=== PATIENT | female | born 1945 | race Caucasian/White ===

== ENCOUNTER → 2020-03-01 15:04 | Outpatient (CLI) | payer MEDICARE, OTHER, SELFPAY ==
[2020-03-01 16:24] LABS: Add Manual Diff / Slide Review NO; Basophils Absolute Auto 100 /uL (0-100); Basophils Percent Auto 0.9 % (0-2); Eosinophils Absolute Auto 500 /uL (0-450); Hematocrit 40.1 % (36-46); Hemoglobin 13.8 g/dL (12.0-16.0); Lymphocytes Absolute Auto 2500 /uL (1100-4500); Lymphocytes Percent Auto 33.6 % (25-40); Mean Corpuscular HGB Conc 34.6 % (30-36); Mean Corpuscular Hemoglobin 32.1 PG (26-34); Monocytes Absolute Auto 800 /uL (0-900); Monocytes Percent Auto 11.1 % (3-14); Neutrophils Absolute Auto 3600 /uL (1500-7000); Neutrophils Percent Auto 47.4 % (50-75); Platelet Count 277 X10^3/uL (150-400); Red Blood Cell Count 4.31 X10^6/uL (4.0-5.2); Red Cell Distribution Width 13.3 % (11.6-14.8); White Blood Cell Count 7.5 X10^3/uL (4.5-11.0)
[2020-03-01 16:42] LABS: BUN Creatinine Ratio 21.9 (6-22); Blood Urea Nitrogen 14 mg/dL (7-17); Calcium 9.3 mg/dL (8.4-10.2); Carbon Dioxide 32 mmol/L (22-32); Chloride 101 mmol/L (98-107); Estimated Glomerular Filt Rate > 60.0 mL/min (>60); Glucose 84 mg/dL (80-110); HEMOLYSIS < 15 (0-50); Potassium 3.8 mmol/L (3.4-5.1); Sodium 140 mmol/L (137-145)
== END ==
PROVIDERS: Family Provider Nurse Practitioner Family; Referring Provider Orthopaedic Surgery; Visit Provider Orthopaedic Surgery
DX: Z01.818 Encounter for other preprocedural examination (principal); Z01.812 Encounter for preprocedural laboratory examination
CPT/HCPCS: 36415; 80048; 85025; 93005

== ENCOUNTER 2020-03-09 06:28 | Day surgery (SDC) | payer MEDICARE, OTHER, SELFPAY ==
[2020-03-03 14:03] VITALS: BMI 28.6
[2020-03-09 07:05] LABS: COVID19 -Nasal RAPID Negative (Negative)
--- NOTE | 2020-03-09 07:09 | SUR.PREOP ---
pt has large red area on upper left arm - she thinks it may be a bug bite or a bee sting, area is swollen, red and warm to touch. pt also has red and swollen area on her right ankle that she states is from her sore knee. Dr Alicea in to see pt, will reschedule procedure for another time
[2020-03-09 07:27] VITALS: BP 149/93; PULSE 94; RESP 16; TEMP 36.8; O2SAT 97; BMI 28.6
[2020-03-09] MEDS: CEFTRIAXONE 2 GM/50 ML FROZ.PIGGY IV (07:46)
[2020-03-09] MEDS: LACTATED RINGERS 1,000 ML 42 ML IV (07:47)
--- NOTE | 2020-03-09 07:48 | SUR.PREOP ---
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
[2020-03-09 08:01] VITALS: BP 152/82; PULSE 86; RESP 16; O2SAT 97
== END 2020-03-09 07:00 | disposition home or self-care (01) ==
PROVIDERS: Family Provider Nurse Practitioner Family; Referring Provider Orthopaedic Surgery; Visit Provider Orthopaedic Surgery
DX: M48.062 Spinal stenosis, lumbar region with neurogenic claudication (principal); M43.16 Spondylolisthesis, lumbar region; Z11.59 Encounter for screening for other viral diseases; Z53.9 Procedure and treatment not carried out, unspecified reason
CPT/HCPCS: 22633; 63048; 22634; 22853 ×2; 22842; 63047; 87635; J0330; J0696; J1100; J2250; J2405; J2704; J3010